=== PATIENT | female | born 1960 | race African-American/Black ===

== ENCOUNTER → 2016-08-10 | Outpatient (CLI) | payer OTHER | LOC: RAD 08-03 01:18 | DX: Z12.31 Encounter for screening mammogram for malignant neoplasm of breast (principal) ==

== ENCOUNTER 2016-12-27 04:34 | Emergency (ER) | payer OTHER ==
[~2016-12-27] VITALS: Ht 162.6 cm; Wt 64.9 kg
[2016-12-27 04:48] VITALS: BP 123/81
[2016-12-27] MEDS ORDERED: LIPITOR 20 MG T20 M1 PO (04:54)
[2016-12-27] MEDS ORDERED: BENICAR40 MG PO (04:54)
[2016-12-27] MEDS ORDERED: ESTRADIOL 1 MG T1 M1 PO (04:56)
[2016-12-27] MEDS ORDERED: DALIRESP500 MCG (04:56)
[2016-12-27] MEDS ORDERED: ULTRAM 50MG TAB50 MG PO (05:20)
[2016-12-27] MEDS ORDERED: PREDNISONE 20 M20 M1 PO (05:20)
[2016-12-27] MEDS ORDERED: NAPROSYN500 MG PO (05:20)
== END 2016-12-27 05:33 | disposition home or self-care (01) ==
LOC: ER 04:34
DX: M54.32 Sciatica, left side (principal)

== ENCOUNTER → 2017-08-12 | Outpatient (CLI) | payer OTHER ==
[~2017-08-12] MED LIST: BENICAR40 MG PO; DALIRESP500 MCG; ESTRADIOL 1 MG T1 M1 PO; LIPITOR 20 MG T20 M1 PO; NAPROSYN500 MG PO; PREDNISONE 20 M20 M1 PO; ULTRAM 50MG TAB50 MG PO
== END ==
LOC: RAD 01:15
DX: Z12.31 Encounter for screening mammogram for malignant neoplasm of breast (principal)

== ENCOUNTER → 2018-08-14 | Outpatient (CLI) | payer OTHER | LOC: RAD 08-12 01:17 | DX: Z12.31 Encounter for screening mammogram for malignant neoplasm of breast (principal) ==

== ENCOUNTER → 2019-08-14 | Outpatient (CLI) | payer OTHER | LOC: RAD 09:55 | DX: Z12.31 Encounter for screening mammogram for malignant neoplasm of breast (principal) ==

== ENCOUNTER → 2020-08-15 | Outpatient (CLI) | payer OTHER | LOC: BC 12:45 | DX: Z12.31 Encounter for screening mammogram for malignant neoplasm of breast (principal) ==

== ENCOUNTER → 2021-08-22 | Outpatient (CLI) | payer OTHER | LOC: BC 08-15 11:33 | DX: Z12.31 Encounter for screening mammogram for malignant neoplasm of breast (principal) ==